=== PATIENT | male | born 2000 | race Caucasian/White ===

== ENCOUNTER → 2022-09-25 | Outpatient (CLI) | payer BC, SELFPAY ==
--- NOTE | 2022-09-25 07:38 | MRI_ITS ---
STUDY: MRI RIGHT KNEE REASON FOR EXAM: Male, 21 years old. Pain. Evaluate for patellar fracture. TECHNIQUE: Standardized fat and water weighted pulse sequences were obtained in all 3 orthogonal planes. COMPARISON: None. FINDINGS: Normal medial meniscus. Normal hyaline cartilage of the medial femorotibial compartment. Small bone contusions of the anterior and posterior tibial plateau (sagittal series 5 images 15-21). Thickening and increased signal intensity proximal MCL compatible with remote injury (coronal series 7-17). Normal distal semimembranosus, gracilis and semitendinosus tendons. Normal lateral meniscus. Normal hyaline cartilage of the lateral femorotibial compartment. Large bone contusion of the lateral femoral condyle with extensive focal bone marrow edema in the medial patellar facet. Findings compatible with transient patellar dislocation relocation (axial series 3 images 9-18). Normal proximal tibiofibular articulation. Normal lateral collateral (fibular) ligament. Normal popliteus tendon. Normal biceps femoris tendon. Normal anterior cruciate ligament (ACL). Normal posterior cruciate ligament (PCL). Normal congruent patellofemoral articulation. Normal hyaline cartilage of the patellofemoral compartment. Sprain of the medial patellofemoral ligament/medial retinaculum (axial series 3 images 7-16). Normal quadriceps tendon. Normal patellar tendon. Normal Hoffa''s fat pad. Deep infrapatellar bursitis (sagittal series 5 image 6). Large joint effusion with medial plicae (axial series 3 images 4-14). Prepatellar subcutaneous soft tissue edema (sagittal series 5 image 15). The otherwise visualized osseous structures are unremarkable. MRI/Lower Ext Joint Only (Routine) IMPRESSION: Small contusions of the medial tibial plateau is right. Findings compatible with remote proximal MCL injury. Bone contusions of the medial patellar facet and lateral femoral condyle with sprain of the medial patellofemoral ligament/medial retinaculum. Findings are compatible with transient patellar dislocation/relocation. Deep infrapatellar bursitis. Prepatellar subcutaneous soft tissue edema. Large joint effusion with medial plicae. Electronically Signed: Billy Reeves MD at 10:47 EDT ,
== END | disposition home or self-care (01) ==
PROVIDERS: PCP Family Medicine; Referring Provider Physician Assistant Surgical; Visit Provider Physician Assistant Surgical
DX: S82.009A Unspecified fracture of unspecified patella, initial encounter for closed fracture (principal)
CPT/HCPCS: 73721